=== PATIENT | female | born 1960 | race Caucasian/White ===

== ENCOUNTER 2022-02-28 12:05 | Inpatient (IN) | payer OTHER ==
[~2022-02-28] VITALS: Ht 152.4 cm; Wt 75.3 kg
[2022-02-28 04:00] VITALS: BP 140/75
[2022-02-28 14:12] LABS: BASOPHILS % 0.5 % (0.0-2.0); EOSINOPHILS % 1.2 % (0.0-5.0); HEMATOCRIT. 35.1 % (36.0-48.0); HEMOGLOBIN. 12.2 g/dL (12.0-16.0); LYMPHOCYTES % 20.9 % (20.0-50.0); MEAN PLATELET VOLUME 7.1 fl (7.4-10.4); NEUTROPHILS % 68.4 % (40.0-76.0); PLATELET 405 x1000/uL (130-400); RED BLOOD CELL COUNT 3.81 mill/uL (4.2-5.4); RED CELL DISTRIBUTION WIDTH 13.1 % (11.6-14.6)
[2022-02-28 14:26] LABS: CHLORIDE 94 mEq/L (98-107)
[2022-02-28 14:28] LABS: BG BASE EXCESS 8.2 mmol/L (-2.0-2.0); BG DEOXYHEMOGLOBIN 7.1 % (0.0-5.0); BG FRACTION INSPIRED OXYGEN 21; BG HCO3 ACT 32.9 mmol/L (22.0-26.0); BG METHEMOGLOBIN 0.2 % (0.0-1.5); BG OXYGEN SATURATION 92.6 % (92.0-98.5); BG OXYHEMOGLOBIN 88.7 % (94.0-97.0); BG PH 7.472 (7.350-7.450); BG PO2 57.9 mmHg (75.0-100.0); BG SAMPLE SITE RIGHT RADIAL; BG TOTAL HEMOGLOBIN 11.8 g/dL (12.0-18.0); BG VENT MODE ROOM AIR
[2022-02-28 14:49] LABS: PHOSPHORUS 4.5 mg/dL (2.5-4.9)
[2022-02-28 17:41] LABS: CLARITY URINE TURBID (CLEAR); COLOR URINE YELLOW (YELLOW); KETONES URINE NEGATIVE (NEGATIVE); LEUKOCYTE ESTERASE URINE TRACE (NEGATIVE); NITRITE URINE NEGATIVE (NEGATIVE); OCCULT BLOOD URINE 2+ (NEGATIVE); PROTEIN URINE TRACE (NEGATIVE); UROBILINOGEN URINE 0.2 E.U./dL (0.2-1.0)
[2022-02-28 20:00] VITALS: BP 138/69
[2022-02-28] MEDS ORDERED: PAMIDRONATE DISODIUM 90 MG in SODIUM CHLORIDE 0.9% 1,000 ML IV NR (20:30)
[2022-02-28] MEDS: SODIUM CHLORIDE 0.9% 1,000 ML IV SCH (20:38)
[2022-02-28] MEDS ORDERED: CLONIDINE 0.1MG TABLET PO PRN (21:30)
[2022-02-28] MEDS ORDERED: DOCUSATE SODIUM 100MG CAPSULE PO PRN (21:30)
[2022-02-28] MEDS ORDERED: GUAIFENESIN 200MG/10ML SUGAR FREE UDC PO PRN (21:30)
[2022-02-28] MEDS ORDERED: MAGNESIUM/ALUMINUM HYDROXIDE/SIMETHICONE 30ML UDC PO PRN (21:30)
[2022-02-28] MEDS ORDERED: IPRATROPIUM/ALBUTEROL 0.5-3(2.5)MG/3ML NEB HHN PRN (21:30)
[2022-02-28] MEDS ORDERED: ACETAMINOPHEN 325MG TABLET PO PRN (21:30)
[2022-02-28] MEDS ORDERED: LEVOFLOXACIN 500MG PREMIX 100 ML IV SCH (22:30)
[2022-03-01] MEDS: SODIUM CHLORIDE 0.9% 1,000 ML IV SCH ×3 (02:19→22:10)
[2022-03-01 07:29] LABS: BASOPHILS % 0.7 % (0.0-2.0); EOSINOPHILS % 2.6 % (0.0-5.0); HEMATOCRIT. 31.1 % (36.0-48.0); HEMOGLOBIN. 10.9 g/dL (12.0-16.0); LYMPHOCYTES % 26.2 % (20.0-50.0); MEAN CORPUSCULAR HEMOGLOBIN 32.3 pg (28.0-32.0); MEAN CORPUSCULAR VOLUME 92.1 fL (81.0-99.0); MEAN PLATELET VOLUME 7.3 fl (7.4-10.4); MONOCYTES % 8.9 % (2.0-8.0); NEUTROPHILS % 61.6 % (40.0-76.0); PLATELET 365 x1000/uL (130-400); RED BLOOD CELL COUNT 3.38 mill/uL (4.2-5.4); RED CELL DISTRIBUTION WIDTH 12.8 % (11.6-14.6)
[2022-03-01 07:37] VITALS: BP 149/83
[2022-03-01] MEDS: ENOXAPARIN 30MG/0.3ML SYR SUBCUT SCH (08:28)
[2022-03-01 09:27] LABS: CHLORIDE 100 mEq/L (98-107)
[2022-03-01 09:35] LABS: PHOSPHORUS 3.4 mg/dL (2.5-4.9)
[2022-03-01 11:35] VITALS: BP 144/77
[2022-03-01] MEDS: ACETAMINOPHEN 325MG TABLET PO PRN ×2 (14:54→20:57)
[2022-03-01 15:04] VITALS: BP 140/84
[2022-03-01 20:00] VITALS: BP_SYST 137; BP_SYST 149; BP_DIAS 78; BP_DIAS 84
[2022-03-01] MEDS ORDERED: POTASSIUM CHLORIDE 20MEQ TABLET SR PO NR ×2 (20:30)
[2022-03-01] MEDS: ONDANSETRON HCL 4MG/2ML INJ IV PRN (20:57)
[2022-03-01] MEDS: LEVOFLOXACIN 250MG PREMIX 50 ML IV SCH (20:58)
[2022-03-01 22:44] LABS: HEPATITIS B SURFACE ANTIGEN NEGATIVE
[2022-03-02] VITALS: BP 137/84
[2022-03-02 04:00] VITALS: BP 142/78
[2022-03-02] MEDS: ACETAMINOPHEN 325MG TABLET PO PRN ×2 (05:25→14:57)
[2022-03-02] MEDS: SODIUM CHLORIDE 0.9% 1,000 ML IV SCH ×3 (05:25→21:14)
[2022-03-02 08:00] VITALS: BP 120/72
[2022-03-02] MEDS: ENOXAPARIN 30MG/0.3ML SYR SUBCUT SCH (08:19)
[2022-03-02 09:39] LABS: BASOPHILS % 0.4 % (0.0-2.0); EOSINOPHILS % 1.3 % (0.0-5.0); HEMATOCRIT. 28.4 % (36.0-48.0); HEMOGLOBIN. 9.8 g/dL (12.0-16.0); MEAN CORPUSCULAR HEMOGLOBIN 31.7 pg (28.0-32.0); MEAN PLATELET VOLUME 6.8 fl (7.4-10.4); MONOCYTES % 5.5 % (2.0-8.0); NEUTROPHILS % 74.8 % (40.0-76.0); PLATELET 292 x1000/uL (130-400); RED BLOOD CELL COUNT 3.09 mill/uL (4.2-5.4); RED CELL DISTRIBUTION WIDTH 13.2 % (11.6-14.6)
[2022-03-02 10:30] LABS: PHOSPHORUS 3.7 mg/dL (2.5-4.9)
[2022-03-02 12:00] VITALS: BP 139/75
[2022-03-02] MEDS: TAMSULOSIN HCL 0.4MG SR CAPSULE PO SCH (14:52)
[2022-03-02 16:00] VITALS: BP 137/71
[2022-03-02] MEDS ORDERED: KCL 20MEQ/100ML PREMIX 100 ML IV NR (18:30)
[2022-03-02] MEDS: ONDANSETRON HCL 4MG/2ML INJ IV PRN (18:44)
[2022-03-02 20:00] VITALS: BP 138/84
[2022-03-02] MEDS: LEVOFLOXACIN 250MG PREMIX 50 ML IV SCH (21:13)
[2022-03-03] VITALS: BP 141/72
[2022-03-03 04:00] VITALS: BP 141/79
[2022-03-03 05:49] VITALS: BP 141/89
[2022-03-03] MEDS: SODIUM CHLORIDE 0.9% 1,000 ML IV SCH ×3 (07:16→20:18)
[2022-03-03 08:00] VITALS: BP 115/78
[2022-03-03 08:14] LABS: BASOPHILS % 0.6 % (0.0-2.0); HEMOGLOBIN. 9.4 g/dL (12.0-16.0); LYMPHOCYTES % 25.7 % (20.0-50.0); MEAN CORPUSCULAR HEMOGLOBIN 32.4 pg (28.0-32.0); MEAN CORPUSCULAR VOLUME 93.3 fL (81.0-99.0); MEAN PLATELET VOLUME 6.8 fl (7.4-10.4); MONOCYTES % 11.2 % (2.0-8.0); NEUTROPHILS % 58.5 % (40.0-76.0); PLATELET 282 x1000/uL (130-400); RED BLOOD CELL COUNT 2.89 mill/uL (4.2-5.4); RED CELL DISTRIBUTION WIDTH 13.1 % (11.6-14.6)
[2022-03-03 09:11] LABS: IMMUNOGLOBULIN A 266 mg/dL (87-352); IMMUNOGLOBULIN G 627 mg/dL (586-1602); IMMUNOGLOBULIN M 97 mg/dL (26-217)
[2022-03-03] MEDS: TAMSULOSIN HCL 0.4MG SR CAPSULE PO SCH (09:37)
[2022-03-03] MEDS: ENOXAPARIN 30MG/0.3ML SYR SUBCUT SCH (09:37)
[2022-03-03 10:22] LABS: PHOSPHORUS 3.3 mg/dL (2.5-4.9)
[2022-03-03 16:00] VITALS: BP 146/77
[2022-03-03 20:00] VITALS: BP 151/89
[2022-03-03] MEDS: LEVOFLOXACIN 250MG PREMIX 50 ML IV SCH (20:33)
[2022-03-04] VITALS: BP 144/86
[2022-03-04] MEDS: ONDANSETRON HCL 4MG/2ML INJ IV PRN (03:45)
[2022-03-04 04:00] VITALS: BP 124/66
[2022-03-04] MEDS: SODIUM CHLORIDE 0.9% 1,000 ML IV SCH (05:45)
[2022-03-04 07:20] LABS: BASOPHILS % 0.7 % (0.0-2.0); EOSINOPHILS % 4.7 % (0.0-5.0); HEMATOCRIT. 25.5 % (36.0-48.0); LYMPHOCYTES % 31.8 % (20.0-50.0); MEAN CORPUSCULAR HEMOGLOBIN 32.6 pg (28.0-32.0); MEAN CORPUSCULAR VOLUME 92.5 fL (81.0-99.0); MEAN PLATELET VOLUME 6.9 fl (7.4-10.4); MONOCYTES % 9.8 % (2.0-8.0); PLATELET 291 x1000/uL (130-400); RED BLOOD CELL COUNT 2.76 mill/uL (4.2-5.4); RED CELL DISTRIBUTION WIDTH 13.1 % (11.6-14.6)
[2022-03-04 08:00] VITALS: BP 126/86
[2022-03-04] MEDS: TAMSULOSIN HCL 0.4MG SR CAPSULE PO SCH (09:27)
[2022-03-04] MEDS: ENOXAPARIN 30MG/0.3ML SYR SUBCUT SCH (09:27)
[2022-03-04 09:58] LABS: PHOSPHORUS 3.9 mg/dL (2.5-4.9)
[2022-03-04 12:00] VITALS: BP 156/84
[2022-03-04] MEDS ORDERED: MAGNESIUM 2 G PREMIX 50 ML IV NR (14:15)
[2022-03-04] MEDS: SODIUM CHLORIDE 0.45% 1,000 ML IV SCH ×2 (15:16→23:30)
[2022-03-04 16:30] VITALS: BP 151/76
[2022-03-04 20:00] VITALS: BP 157/79
[2022-03-04] MEDS: LEVOFLOXACIN 250MG PREMIX 50 ML IV SCH (22:13)
[2022-03-05] VITALS: BP 150/84
[2022-03-05] MEDS: ACETAMINOPHEN 325MG TABLET PO PRN ×4 (00:12→17:20)
[2022-03-05 04:00] VITALS: BP 142/71
[2022-03-05 07:53] LABS: BASOPHILS % 0.8 % (0.0-2.0); EOSINOPHILS % 3.3 % (0.0-5.0); HEMOGLOBIN. 9.4 g/dL (12.0-16.0); LYMPHOCYTES % 28.5 % (20.0-50.0); MEAN CORPUSCULAR HEMOGLOBIN 32.2 pg (28.0-32.0); MEAN CORPUSCULAR VOLUME 92.2 fL (81.0-99.0); MEAN PLATELET VOLUME 6.9 fl (7.4-10.4); NEUTROPHILS % 58.4 % (40.0-76.0); PLATELET 331 x1000/uL (130-400); RED BLOOD CELL COUNT 2.92 mill/uL (4.2-5.4); RED CELL DISTRIBUTION WIDTH 13.2 % (11.6-14.6)
[2022-03-05 08:00] VITALS: BP 141/68
[2022-03-05] MEDS ORDERED: PROPOFOL 200MG/20ML VIAL IV ONE (08:59)
[2022-03-05] MEDS ORDERED: SUCCINYLCHOLINE CHLORIDE 200MG/10ML IV ONE (08:59)
[2022-03-05] MEDS ORDERED: FENTANYL CITRATE/PF 50MCG/ML 2ML VIAL ONE (09:00)
[2022-03-05] MEDS ORDERED: MIDAZOLAM HCL 2 MG/2 ML VIAL ONE (09:00)
[2022-03-05] MEDS: SODIUM CHLORIDE 0.45% 1,000 ML IV SCH ×2 (09:30→20:21)
[2022-03-05] MEDS ORDERED: LABETALOL 5MG/ML SYR 20 MG/4 ML SYRINGE IV PRN (09:45)
[2022-03-05] MEDS ORDERED: ONDANSETRON HCL 4MG/2ML INJ IV PRN (09:45)
[2022-03-05] MEDS ORDERED: MEPERIDINE HCL/PF 25MG/ML CPJ IV PRN (09:45)
[2022-03-05] MEDS ORDERED: HYDROMORPHONE HCL/PF 2MG/ML CPJ IV PRN (09:45)
[2022-03-05 10:44] LABS: PHOSPHORUS 3.6 mg/dL (2.5-4.9)
[2022-03-05] MEDS ORDERED: ACETAMINOPHEN 325MG TABLET PO NR (11:30)
[2022-03-05 12:00] VITALS: BP 141/74
[2022-03-05] MEDS: ENOXAPARIN 30MG/0.3ML SYR SUBCUT SCH (12:35)
[2022-03-05] MEDS: TAMSULOSIN HCL 0.4MG SR CAPSULE PO SCH (12:35)
[2022-03-05] MEDS: ONDANSETRON HCL 4MG/2ML INJ IV PRN (13:03)
[2022-03-05 16:00] VITALS: BP 151/87
[2022-03-05] MEDS ORDERED: THROAT LOZENGES-BENZOCAINE/MENTH/CETYLPYRD CL LOZENGES MM PRN (16:45)
[2022-03-05 20:00] VITALS: BP 151/67
[2022-03-05] MEDS: LEVOFLOXACIN 250MG PREMIX 50 ML IV SCH (20:07)
[2022-03-06] VITALS: BP 137/67
[2022-03-06] MEDS: ACETAMINOPHEN 325MG TABLET PO PRN ×3 (01:03→13:58)
[2022-03-06 04:00] VITALS: BP 136/68
[2022-03-06] MEDS: SODIUM CHLORIDE 0.45% 1,000 ML IV SCH (05:52)
[2022-03-06 07:07] LABS: BASOPHILS % 0.5 % (0.0-2.0); EOSINOPHILS % 1.9 % (0.0-5.0); HEMATOCRIT. 29.3 % (36.0-48.0); HEMOGLOBIN. 9.7 g/dL (12.0-16.0); LYMPHOCYTES % 27.4 % (20.0-50.0); MEAN CORPUSCULAR HEMOGLOBIN 31.6 pg (28.0-32.0); MEAN CORPUSCULAR VOLUME 95.5 fL (81.0-99.0); MEAN PLATELET VOLUME 7.2 fl (7.4-10.4); MONOCYTES % 7.9 % (2.0-8.0); NEUTROPHILS % 62.3 % (40.0-76.0); PLATELET 345 x1000/uL (130-400); RED BLOOD CELL COUNT 3.07 mill/uL (4.2-5.4); RED CELL DISTRIBUTION WIDTH 13.2 % (11.6-14.6)
[2022-03-06 07:55] LABS: PHOSPHORUS 3.7 mg/dL (2.5-4.9)
[2022-03-06 08:00] VITALS: BP 113/56
[2022-03-06] MEDS: ENOXAPARIN 30MG/0.3ML SYR SUBCUT SCH (08:34)
[2022-03-06] MEDS: TAMSULOSIN HCL 0.4MG SR CAPSULE PO SCH (08:36)
[2022-03-06] MEDS ORDERED: TAMS-11 PO (10:52)
[2022-03-06] MEDS ORDERED: TOPUD PO (10:52)
[2022-03-06 12:00] VITALS: BP 134/74
[2022-03-06 13:07] LABS: QFT MITOGEN VALUE >10.00 IU/mL (.); QFT TB GOLD PLUS Negative (Negative); QFT TB1 AG VALUE 0.09 IU/mL (.)
[2022-03-06 13:35] VITALS: BP 134/74
== END 2022-03-06 16:00 | disposition home or self-care (01) | DRG 690 ==
LOC: ER 12:05 → 6WST 15:42 → EDBEDREQSVC 15:45 → EDBEDREQ 15:45 → EDBEDREQTM 15:45 → ENRESERV 17:12
PROVIDERS: ADMIT Internal Medicine; ATTEND Internal Medicine
PROC: 0TF68ZZ Fragmentation in Right Ureter, Via Natural or Artificial Opening Endoscopic (ICD-10-PCS; principal; 2022-03-05)
PROC: BT161ZZ Fluoroscopy of Right Ureter using Low Osmolar Contrast (ICD-10-PCS; 2022-03-05)
DX: N13.6 Pyonephrosis (principal); B19.10 Unspecified viral hepatitis B without hepatic coma; E87.3 Alkalosis; N17.9 Acute kidney failure, unspecified; E83.52 Hypercalcemia; B19.20 Unspecified viral hepatitis C without hepatic coma; E87.6 Hypokalemia; E83.41 Hypermagnesemia; Z20.822 Contact with and (suspected) exposure to COVID-19; G62.9 Polyneuropathy, unspecified; E87.8 Other disorders of electrolyte and fluid balance, not elsewhere classified; N28.89 Other specified disorders of kidney and ureter; F17.210 Nicotine dependence, cigarettes, uncomplicated; J20.9 Acute bronchitis, unspecified; Z80.1 Family history of malignant neoplasm of trachea, bronchus and lung; Z82.49 Family history of ischemic heart disease and other diseases of the circulatory system; Z87.442 Personal history of urinary calculi
CPT/HCPCS: 36415; 36600; 71045; 71250; 74176; 76770; 80048; 80053; 81003; 82164; 82306; 82330; 82375; 82652; 82784; 82805; 83036; 83615; 83735; 83880; 83970; 84100; 84443; 84484; 85025; 86334; 86480; 86705; 86709; 86803; 87340; 87426; 93005; 93970; 99285; C1769; C1893; J0330; J1650; J1956; J2250; J2405; J2430; J2704; J3010; J3475; J3480; J7030; J7040